=== PATIENT | female | born 1940 | race Caucasian/White ===

== ENCOUNTER 2017-01-31 17:22 | Emergency (ER) | payer OTHER ==
[2017-01-31 17:46] VITALS: BP 192/92; PULSE 91; TEMP 97.9; BMI 23.0
--- NOTE | 2017-01-31 17:58 | PDOC ---
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 The patient reports she was walking to the diner in [place], but when she went to turn the corner she tripped on the curb, fell forward, and landed on her left hand. She reports associated left wrist pain and tenderness. Patient denies any associated head trauma, LOC, or amnesia. She reports she was able to get up on her own. Patient reports a scrape to her right knee, but denies any limited range of motion or right knee pain. She reports mild right elbow tightness, but denies any limitations in elbow movement. She denies any other associated trauma. She denies any neck or back pain. Allergies: Penicillins Past Surgical History: Right Nephrectomy Social History: Non smoker. No ETOH or drug use. Orthopedist: Dr. Wing <George Larry - Last Filed: 01/31/17 18:44> - General History Source: Patient Exam Limitations: No Limitations <Rosie Saldivar - Last Filed: 02/02/17 09:09> - General Chief Complaint: Injury Stated Complaint: LEFT ARM INJURY Time Seen by Provider: 01/31/17 17:32 Past History <George Larry - Last Filed: 01/31/17 18:44> - Past Medical History Other medical history: DENIES - Immunization History Immunization Up to Date: Yes - Psycho/Social/Smoking Cessation Hx Anxiety: No Suicidal Ideation: No Smoking History: Never smoked Have you smoked in the past 12 months: No Number of Cigarettes Smoked Daily: 0 Cigars Per Day: 0 Information on smoking cessation initiated: No Hx Alcohol Use: No Drug/Substance Use Hx: No Substance Use Type: None <Rosie Saldivar - Last Filed: 02/02/17 09:09> - Past Medical History Allergies/Adverse Reactions: Allergies Allergy/AdvReac Type Severity Reaction Status Date / Time Penicillins Allergy Verified 06/18/13 08:25 Home Medications: Ambulatory Orders Acetaminophen W/ Codeine #3 [Tylenol # 3 -] 1 tab PO TID PRN #15 tablet MDD 3 Review of Systems - Review of Systems Able to Perform ROS?: Yes Comments:: 01/31/17 18:41 GENERAL/CONSTITUTIONAL: No: fever, chills, weakness, loss of appetite. HEAD, EYES, EARS, NOSE AND THROAT: No: change in vision, ear pain, discharge, sore throat, throat swelling. CARDIOVASCULAR: No: chest pain, lightheadedness, palpitations, syncope RESPIRATORY: No: cough, shortness of breath, wheezing, hemoptysis, stridor. GASTROINTESTINAL: No: nausea, vomiting, abdominal cramping, diarrhea, rectal bleeding, constipation. GENITOURINARY: No: dysuria, hematuria, frequency, urgency, flank pain. MUSCULOSKELETAL:Yes: +left wrist pain/ tenderness, +right elbow tightness. No: back pain, neck pain, joint pain, muscle swelling or pain SKIN AND BREASTS: Yes: +Right knee scrape. No: lesions, pallor, rash or easy bruising. NEUROLOGIC: No: headache, vertigo, paresthesias, weakness ENDOCRINE: No: unexplained weight gain or loss HEMATOLOGIC/LYMPHATIC: No: anemia, easy bleeding, swelling nodes <Larry,Giomilsy - Last Filed: 01/31/17 18:44> *Physical Exam - Vital Signs Last Vital Signs Temp Pulse Resp BP Pulse Ox 97.9 F 91 H 20 192/92 99 01/31/17 17:23 01/31/17 17:23 01/31/17 17:23 01/31/17 17:23 01/31/17 17:23 - Physical Exam Comments: 01/31/17 18:42 GENERAL: The patient is in no acute distress. HEAD: Normal with no signs of trauma. EYES: PERRLA, EOMI, sclera anicteric, conjunctiva clear. ENT: Ears normal, nares patent, oropharynx clear without exudates. Moist mucous membranes. NECK: Normal range of motion, supple without lymphadenopathy, JVD, or masses. LUNGS: Breath sounds equal, clear to auscultation bilaterally. No wheezes, and no crackles. HEART:Regular rate and rhythm, normal S1 and S2 without murmur, rub or gallop. ABDOMEN: Soft, nontender, normoactive bowel sounds. No guarding, no rebound. EXTREMITIES: Normal range of motion, no edema. No clubbing or cyanosis. No erythema, or tenderness. NEUROLOGICAL: Cranial nerves II through XII grossly intact. Normal speech. No focal neurological deficits. MUSCULOSKELETAL: Pain with left wrist movement. Tenderness of distal radius. No scaphoid tenderness. Back non-tender to palpation, no CVA tenderness SKIN: Warm, Dry, normal turgor, no rashes or lesions noted. <George Larry - Last Filed: 01/31/17 18:44> - Vital Signs Last Vital Signs Temp Pulse Resp BP Pulse Ox 97.9 F 91 H 20 192/92 99 01/31/17 17:23 01/31/17 17:23 01/31/17 17:23 01/31/17 17:23 01/31/17 17:23 <Rosie Saldivar - Last Filed: 02/02/17 09:09> ED Treatment Course - RADIOLOGY Radiology Studies Ordered: 01/31/17 18:43 EXAM: X-Ray Left Hand INTERPRETED BY: Dr. Saldivar IMPRESSION: Left distal radius fracture. <George Larry - Last Filed: 01/31/17 18:44> - RADIOLOGY Radiology Studies Ordered: Category Date Time Status ELBOW-RIGHT [RAD] Stat Radiology 01/31/17 17:55 Ordered FOREARM- LEFT [RAD] Stat Radiology 01/31/17 17:55 Ordered <Rosie Saldivar - Last Filed: 02/02/17 09:09> Medical Decision Making - Medical Decision Making 01/31/17 17:58 A portion of this note was documented by scribe services under my direction. I have reviewed the details of the note, within reason, and agree with the documentation with the following case summary and management plan written by me. Nursing documentation reviewed and incorporated into medical decision making 01/31/17 18:20 T 76-year-old female with a history of a right nephrectomy due to renal cyst Patient states she has no other medical history, takes no other medications. She states she was walking towards the ER to be diner, tripped over the curb and fell forward and landed on her left hand. She was able to get herself up to a standing position. Patient denies head trauma, loss of consciousness, amnesia. Patient notes that she scraped her right knee, but has no limitations in range of motion. Patient reports left wrist pain and tenderness. On examination: Right elbow stiff but non tender No limitations in ROM Pain with left wrist movement Tenderness of distal radius No scaphoid tenderness Will do xray wrist Will not give pain medications Pt has no head or neck pain Does not need head CT 01/31/17 18:25 Xray demonstrates distal radius fracture Will place splint Will ask pt to follow up with Dr wing Clinical impression: Distal radius fracture <Rosie Saldivar - Last Filed: 02/02/17 09:09> *DC/Admit/Observation/Transfer - Attestations Scribe Attestion: 01/31/17 18:43 Documentation prepared by George Larry, acting as medical biller coder for Rosie Saldivar MD. <George Larry - Last Filed: 01/31/17 18:44> - Discharge Dispostion Admit: No <Rosie Saldivar - Last Filed: 02/02/17 09:09> Diagnosis at time of Disposition: Distal radius fracture, left Qualifiers: Encounter type: initial encounter Fracture type: closed Fracture morphology: other extra-articular Qualified Code(s): S52.552A - Other extraarticular fracture of lower end of left radius, initial encounter for closed fracture - Discharge Dispostion Disposition: HOME Condition at time of disposition: Stable - Prescriptions Prescriptions: Acetaminophen W/ Codeine #3 [Tylenol # 3 -] 1 tab PO TID PRN #15 tablet MDD 3 PRN Reason: Pain - Referrals Referrals: Forrest Wing MD [Staff Physician] - - Patient Instructions Printed Discharge Instructions: DI for Distal Radius Fracture Additional Instructions: Thank you for coming in to the ER today I am so sorry that you fell You have a fracture Your splint can be removed if it feels too tight, if you have swelling of your hand Please follow up with Dr Wing within 1 week Return to the ER for any other concerns or complaints
--- NOTE | 2017-02-01 09:00 | PDOC ---
Patient Follow-up (Call Back) - Post ED Follow - Up Condition at time of discharge: Stable Disposition at time of original discharge: HOME Reason for Call Back: Radiology (Patient was contacted by phone at 9 AM today. She is doing well. She was informed of the possible fracture of the right elbow. She states that the elbow is "a little stiff" but she is using it without much difficulty. She is maintaining the splint on her left wrist and is scheduled to see her orthopedic surgeon for follow-up. She will discuss the elbow injury/possible fracture as well at that time. If she has any questions she is urged to call back or return to the ER. She was appreciative and thanked me for the information.)
== END 2017-01-31 19:01 | disposition home or self-care (01) ==
LOC: FER 17:22
PROC: 2W3CX1Z Immobilization of Right Lower Arm using Splint (ICD-10-PCS; principal; 2017-01-31)
DX: S52.552A Other extraarticular fracture of lower end of left radius, initial encounter for closed fracture (principal); W18.39XA Other fall on same level, initial encounter; Y93.89 Activity, other specified; Y92.511 Restaurant or cafe as the place of occurrence of the external cause
CPT/HCPCS: 29125; 73070-TC-RT; 73090-TC-LT; 99283-25

== ENCOUNTER 2024-05-04 14:33 | Observation (INO) | payer BC, OTHER ==
[2024-05-04] MEDS ORDERED: DIPHTH,PERTUSS(ACELL),TET 0.5 ML DISP.SYRIN IM ONE (15:19)
[2024-05-04] MEDS: DIPHTH,PERTUSS(ACELL),TET 0.5 ML DISP.SYRIN IM ONE (15:24)
[2024-05-04] MEDS: TETANUS AND DIPHTHERIA TOXOID 0.5 ML DISP.SYRIN IM ONE (15:25)
[2024-05-04 18:41] LABS: HEMATOCRIT 43.6 % (32.4-45.2); MCH 30.3 pg (25.7-33.7); MCHC 32.1 g/dl (32.0-36.0); MEAN CELL VOLUME 94.6 fl (80-96); MEAN PLT VOLUME 10.1 fl (7.5-11.1); PLATELET COUNT 194.5 10^3/uL (134-434); RBC 4.61 10^6/uL (3.60-5.2); RDW 14.3 % (11.6-15.6); WHITE BLOOD COUNT 9.1 10^3/uL (4.0-10.8)
[2024-05-04 19:03] LABS: ALBUMIN 4.9 g/dl (3.4-5.0); BILIRUBIN,TOTAL 0.8 mg/dl (0.2-1); CREATININE 0.9 mg/dl (0.6-1.3); POTASSIUM 3.7 mmol/L (3.5-5.1); TOT PROT 7.4 g/dl (6.4-8.2)
[2024-05-04 19:09] LABS: PLATELET ESTIMATE ADEQUATE
[2024-05-04] MEDS ORDERED: amLODIPine BESYLATE 5 MG TABLET (FP) ONE (20:20)
[2024-05-04] MEDS: amLODIPine BESYLATE 5 MG TABLET (FP) PO ONE (21:10)
[2024-05-04] MEDS: DOCUSATE SODIUM 100 MG CAPSULE (FP) PO PRN (21:11)
[2024-05-04 21:57] VITALS: BMI 21.5
[2024-05-04] MEDS: ALPRAZolam 0.25 MG TABLET PO PRN (23:01)
[2024-05-05] MEDS: ALPRAZolam 0.25 MG TABLET PO PRN ×2 (02:58→22:15)
[2024-05-05] MEDS: ACETAMINOPHEN 500 MG TABLET (FP) PO ONE (02:58)
[2024-05-05 08:03] LABS: HEMATOCRIT 43.3 % (32.4-45.2); HEMOGLOBIN 13.7 G/dL (10.7-15.3); MCH 29.6 pg (25.7-33.7); MCHC 31.6 g/dl (32.0-36.0); MEAN CELL VOLUME 93.6 fl (80-96); MEAN PLT VOLUME 9.3 fl (7.5-11.1); PLATELET COUNT 192.6 10^3/uL (134-434); RBC 4.63 10^6/uL (3.60-5.2); RDW 14.4 % (11.6-15.6); WHITE BLOOD COUNT 5.1 10^3/uL (4.0-10.8)
[2024-05-05 08:25] LABS: INR 0.98 (0.83-1.09); PROTHROMBIN TIME (PATIENT) 11.2 SEC (9.7-13.0)
[2024-05-05 08:27] LABS: ACTIVATED PTT 31.1 SECONDS (25.2-36.5)
[2024-05-05] MEDS: ACETAMINOPHEN 325 MG TABLET (FP) PO PRN (09:15)
[2024-05-05 09:23] LABS: CALCIUM 9.9 mg/dl (8.5-10.1); CREATININE 0.7 mg/dl (0.6-1.3); PHOSPHOROUS 3.2 (2.5-4.9); POTASSIUM 3.9 mmol/L (3.5-5.1)
[2024-05-05 10:01] VITALS: RESP 18
[2024-05-05] MEDS: amLODIPine BESYLATE 10 MG TABLET (FP) PO SCH (12:18)
[2024-05-05] MEDS: BACITRACIN ZINC 15 GM TUBE TOPICAL OINTMENT TP SCH (12:21)
[2024-05-05] MEDS: LOSARTAN 50MG/HCTZ 12.5MG 1 TAB PO ONE (16:30)
[2024-05-06 09:13] LABS: CHOLESTEROL 190 mg/dL (50-200); HDL CHOLESTEROL 92 mg/dL (40-60); LDL CHOLESTEROL (ONLY DFH) 82 mg/dL (5-100)
[2024-05-06] MEDS: LOSARTAN 50MG/HCTZ 12.5MG 1 TAB PO SCH (09:18)
[2024-05-06 09:47] VITALS: BP 148/69; PULSE 77; TEMP 98.1
== END 2024-05-06 16:07 | disposition home or self-care (01) ==
LOC: FER 14:33 → FM/S 19:50 → INTOOBSV 19:50 → FM/S 20:19
PROVIDERS: ADMIT Internal Medicine; ATTEND Internal Medicine
PROC: 0HQ0XZZ Repair Scalp Skin, External Approach (ICD-10-PCS; principal; 2024-05-04)
PROC: 3E0234Z Introduction of Serum, Toxoid and Vaccine into Muscle, Percutaneous Approach (ICD-10-PCS; 2024-05-04)
DX: S01.01XA Laceration without foreign body of scalp, initial encounter (principal); I16.0 Hypertensive urgency; W18.09XA Striking against other object with subsequent fall, initial encounter; Y93.89 Activity, other specified; Y92.009 Unspecified place in unspecified non-institutional (private) residence as the place of occurrence of the external cause; Z88.0 Allergy status to penicillin
CPT/HCPCS: 36415; 70450-TC; 71045-TC-FY; 80048; 80053; 80061; 83735; 84100; 85027; 85610; 85730; 90715; 93005; 93306-TC; 93880-TC; 97116-GP; 99285-25; G0378

== ENCOUNTER 2024-05-13 12:02 | Emergency (ER) | payer BC, OTHER ==
[2024-05-13 12:10] VITALS: BP 160/71; PULSE 93; RESP 16; TEMP 97.5; BMI 20.9
== END 2024-05-13 12:21 | disposition home or self-care (01) ==
LOC: FER 12:02
DX: Z48.02 Encounter for removal of sutures (principal)
CPT/HCPCS: 99281-25